=== PATIENT | female | born 1985 | race Caucasian/White ===

== ENCOUNTER 2017-11-09 02:27 | Emergency (ER) | payer OTHER ==
[~2017-11-09] VITALS: Ht 152.4 cm; Wt 51.8 kg
[2017-11-09 02:31] VITALS: BP 104/72
[2017-11-09] MEDS ORDERED: PHENAZOPYRIDINE 200 MG TABLET ONE (02:54)
[2017-11-09] MEDS ORDERED: PHENAZOPYRIDINE 200 MG TABLET PO ONE (03:00)
[2017-11-09 03:52] LABS: CULTURE INDICATED? YES; HCG UR SG 1.008 (1.003-1.030); MICROSCOPIC AUTO
== END 2017-11-09 04:29 | disposition home or self-care (01) ==
LOC: ED 04:23
DX: N30.00 Acute cystitis without hematuria (principal)
CPT/HCPCS: 81001; 81025; 87077; 87086; 87186; 99284